=== PATIENT | male | born 1990 | race African-American/Black ===

== ENCOUNTER 2020-11-23 10:14 | Outpatient (CLI) | payer OTHER ==
--- NOTE | 2020-11-23 10:57 | SLEEP CARE CONSULTATION ---
Information from patient questionnaire entered by Viv Adair. I have reviewed and concur with the information entered by Viv Adair. This document represents the service I personally performed and the decisions made by me, Bonnie Garcia MD, [facility]. History of Present Illness Service Date and Time: 11/23/2020 1014 Reason for Visit: New patient Chief Complaint: reports: Insomnia, Snoring, Observed pauses in breathing, Other (restlessness) Date of Onset: 4 years Usual bedtime: 11 pm Time it takes to fall asleep: 1 hour Snores at night: Yes Observed to quit breathing while asleep: Yes Sleeps alone due to snoring: Yes (sometimes) Number of times waking at night: 2 Reasons for waking at night: reports: Choking, Snoring, Gasping for air Toss, Turn, or Twitch while sleeping: Yes Recalls having dreams: No Usually gets out of bed at: 5:45 - 7 am Feels refreshed in the morning: No Morning headache: No Sleepy or fatigued during the day: No Ever fallen asleep while driving: Yes Takes day naps: No Dreams during day naps: No Prior sleep studies: No Additional HPI information: I had the pleasure of seeing Mr. Awad today regarding the possibility of him having a sleep disorder. As you know, he is a 30 year old gentleman who complains of insomnia, snoring, observed apneas, and restless sleep. The patient tells me that he normally goes to bed around 11 pm, and it takes him approximately 60 minutes to fall asleep. He can recall waking up on the average of 2 times during the night. Occasionally, he wakes up because of his own snoring, choking, and having to gasp for air. In the morning he usually gets up out of the bed around 5:45 - 7 a.m. not feeling refreshed nor rested. He usually does not have a morning headache. During the day he does not feel sle epy and fatigued. His score on [place] Sleepiness Scale is 7 out of 24. He has fallen asleep while driving and has gone out of the talat. He usually does not take naps during the day. He reports having impaired concentration during the day. - Parasomnia Symptoms Ever been unable to move upon waking from sleep: No Ever felt weak in the knees when startled or emotional: No Bothered by creepy, crawly, restless sensations in legs: No Problems with memory or concentration: Yes Subjective Initial [place] Sleepiness Scale score: 7 (in 2020) Past Medical History Past Medical History: reports: Anxiety Social History The patient's occupation is a Active . Patient is Single and lives in [place]. Have you smoked in the past 12 months: No Alcohol use: Yes Alcohol amount and frequency: 3 drinks on weekends Caffeine use: No Family History Family history of sleep disordered breathing: Yes (father) Family Hx Sleep Apnea: Father: Sleep apnea - Untreated Allergies and Home Medications Drug allergies reviewed: Yes (NKDA) Home medication list reviewed: Yes (omeprazole as needed) Review of Systems Weight gain over past 5 years: 15 Weight loss over past 5 years: 5 Cardiovascular: denies: high blood pressure, palpitations, chest pain, irregular heart rate or pulse, leg or foot swelling, have to sleep sitting up, other Respiratory: denies: shortness of breath, wheeze, sputum production, chronic cough, other Gastrointestinal: reports: heartburn Urinary: denies: incontinence, frequency, urgency, impotence, other Neurological: denies: headaches, seizure, head trauma, disorientation, speech dysfunction, gait or balance problems, fainting or unconsciousness, other Psychiatric: reports: anxiety Ear/Nose/Throat: reports: wisdom teeth removed Endocrine: denies: thyroid disease, history of goiter, sluggishness, too hot or cold, excessive thirst, increased appetite, increased urination, unexplained weakness, other Musculoskeletal: denies: joint pain, neck pain, back pain, joint swelling, muscle pain or cramping, mobility problems, other Immunologic: denies: sneezing, rash, itching, allergies to food or environment, other Physical Exam Vital signs obtained and entered by: To minimize the risk of COVID-19 exposure, detailed exam was not performed. Height: 5 ft 9 in Weight: 208 lb Body Mass Index: 30.7 BMI Classification: Obese Impression and Plan IMPRESSION: 1. Obstructive Sleep Apnea-Hypopnea Syndrome, as suggested by history of loud and irregular snoring, observed cessation of breath while asleep, frequent awakenings during the night, and unrefreshed sleep. cognitive impairment, and daytime hypersomnolence. Narrow oropharynx and obesity are common predisposing factors for obstructive sleep apnea-hypopnea syndrome. I recommend proceeding to polysomnography to confirm the diagnosis and to assess severity. If he has significant sleep disordered breathing, a manual CPAP titration study will also be performed to find the optimal treatment pressure. I informed the patient of what the sleep studies involve and after some discussion, he agreed to proceed. 2. Insomnia, sleep onset. This is due to his later wakeup time on his days off. Because he gets up spontaneously around 7:30 am when not working, his bedtime is not until 11:30 pm at the earliest, assuming the normal sleep requirement of 8 hours a night. Therefore, going to bed relatively early at 11 pm causes insomnia. The solution is to wake up the same time on the weekends. Plan: 1. Schedule polysomnography + manual CPAP titration study and return in 1 to 2 weeks after the study to discuss result and initiate therapy. 2. Avoid long distance driving or when feeling sleepy. 3. Avoid alcohol, sedative and muscle relaxant around bedtime. 4. Attempt to lose some weight. Time Spent with Patient (minutes): 15
== END 2020-11-23 10:15 | disposition home or self-care (01) ==
LOC: SC 10:14
PROVIDERS: ATTEND Internal Medicine Pulmonary Disease
DX: R06.83 Snoring (principal); R06.81 Apnea, not elsewhere classified; G47.8 Other sleep disorders; R41.89 Other symptoms and signs involving cognitive functions and awareness; G47.10 Hypersomnia, unspecified; G47.00 Insomnia, unspecified; E66.9 Obesity, unspecified; Z68.30 Body mass index [BMI] 30.0-30.9, adult
CPT/HCPCS: 99202; 99212

== ENCOUNTER 2020-12-03 15:40 | Outpatient (CLI) | payer OTHER | END 2020-12-03 15:41 | disposition home or self-care (01) | LOC: SC 15:40 | PROVIDERS: ATTEND Internal Medicine Pulmonary Disease | DX: R06.83 Snoring (principal); G47.8 Other sleep disorders; G47.50 Parasomnia, unspecified; R06.81 Apnea, not elsewhere classified; E66.3 Overweight; Z68.30 Body mass index [BMI] 30.0-30.9, adult | CPT/HCPCS: 95806 ==

== ENCOUNTER 2020-12-15 10:22 | Outpatient (CLI) | payer OTHER ==
--- NOTE | 2020-12-15 11:04 | SLEEP CARE CONSULTATION ---
Information from patient questionnaire entered by Viv Adair. I have reviewed and concur with the information entered by Viv Adair. This document represents the service I personally performed and the decisions made by , Melania Drew ARNP. History of Present Illness Service Date and Time: 12/15/2020 1022 Initial [place] Sleepiness Scale score: 7 (in 2020) Current [place] Sleepiness Scale score: 17 Additional HPI information: CONNIE FERRARA returns for follow up and results of the recently performed home sleep study. The patient was informed of the following findings: no significant sleep disordered breathing with an average AHI of 2.7 and timmy oxygen saturation of 91%. His supine AHI was 3.3. I explained the pathophysiology behind obstructive sleep apnea. Patient does not have sleep apnea and was advised how weight gain could increase the risk of developing sleep apnea in the future. Patient has light snoring. Snoring can be reduced by weight loss. Weight loss is best achieved with diet consult. Patient instructed to contact PCP for referral. Snoring can also be treated with an oral appliance from a dentist. Advised to check insurance coverage. In addition, an ENT evaluation can be do to see if other treatment is indicated. Patient counseled not drink alcohol less than 4 hours before bedtime as it can increase snoring and apnea. Patient was cautioned about risks of drowsy driving until sleepiness symptoms resolve. Sleep Study - Results Type of Sleep Study: Home sleep study Prior sleep studies: No Polysomnography/Home Sleep Study results: Physician Impression: The quality of the study is good. The length of the study is adequate (> 240 minutes). Please also see the tabulated and graphic data. 1. No significant sleep-disordered breathing, with an AHI of 2.7/hr and timmy Sa O2 of 91%. During the study, the patient had 11 apneas (11 obstructive, 0 central, 0 mixed) and 5 hypopneas. The longest episode lasted 64.0 seconds. The few respiratory events occurred more frequently during supine sleep (supine AHI was 3.3 and non-supine, 1.27). Allergies and Home Medications Home medication list reviewed: Yes (no changes) Review of Systems Review of systems same as previous: Yes (no changes) Physical Exam Heart Rate: 80 O2 Saturation: 100 Height: 5 ft 9 in Weight: 204 lb 11.2 oz Body Mass Index: 30.2 BMI Classification: Obese Impression and Plan 1. Suspected Obstructive Sleep Apnea-Hypopnea Syndrome, as suggested by a history of snoring, observed cessation of breath while asleep, gasping or choking in sleep, unrefreshed sleep, and excessive daytime sleepiness. Patient HST showed an average AHI of 2.7 with a timmy oxygen saturation of 91%. His supine AHI was 3.3. Patient [place] today was 17/24 and he was concerned that he has been waking up gasping for air for many years. Patient advised that often weight loss will reduce snoring as well as apnea risk. An oral appliance can also be used for snoring. This would require a dental consultation. Patient cautioned not to use other online appliances as can cause bite issues. Patient is advised to check if insurance will cover. An ENT consult can also be helpful to determine if any other treatment is an option. Since he is somewhat borderline on his back for mild apnea and has compelling symptoms, we discussed options and patient would like to verify the results with an in lab study. I recommend proceeding to polysomnography to confirm the diagnosis and to assess severity. We obtained agreement to proceed. The pathophysiology of obstructive sleep apnea-hypopnea syndrome was discussed with the patient and health risks of cardiovascular and cerebrovascular disease if not treated. 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 Patient agreed to plan. * Schedule polysomnography +- manual CPAP titration study and return in 1-2 weeks after the study to discuss result and initiate therapy. * Avoid long distance driving or driving when feeling sleepy. * Avoid alcohol, sedative and muscle relaxant around bedtime. * Attempt to lose weight. * Review instructions provided by trained office staff on how to prepare for the sleep study. * Return for follow-up after sleep study completed. Counseling Topics: Weight loss health impact Visit Type: In Office Time Spent with Patient (minutes): 22 Provider Statement: I spent 100% of the Face to Face Visit with the patient with greater than 50% spent counseling the patient and coordination of care.
== END 2020-12-15 10:23 | disposition home or self-care (01) ==
LOC: SC 10:22
PROVIDERS: ATTEND Nurse Practitioner Family
DX: R06.83 Snoring (principal); R06.81 Apnea, not elsewhere classified; G47.8 Other sleep disorders; G47.10 Hypersomnia, unspecified; E66.9 Obesity, unspecified; Z68.30 Body mass index [BMI] 30.0-30.9, adult
CPT/HCPCS: 99212; 99213

== ENCOUNTER 2020-12-22 19:39 | Outpatient (CLI) | payer OTHER | END 2020-12-22 19:40 | disposition home or self-care (01) | LOC: SC 19:39 | PROVIDERS: ATTEND Nurse Practitioner Family | DX: R06.83 Snoring (principal); E66.3 Overweight; Z68.30 Body mass index [BMI] 30.0-30.9, adult | CPT/HCPCS: 95810 ==

== ENCOUNTER 2020-12-31 13:25 | Outpatient (CLI) | payer OTHER ==
--- NOTE | 2020-12-31 13:41 | SLEEP CARE CONSULTATION ---
Information from patient questionnaire entered by Aminah Gold. I have reviewed and concur with the information entered by Aminah Gold. This document represents the service I personally performed and the decisions made by , Melania Drew ARNP. History of Present Illness Service Date and Time: 12/31/2020 1325 Initial [place] Sleepiness Scale score: 7 (in 2020) Current [place] Sleepiness Scale score: 15 Additional HPI information: CONNIE FERRARA returns for follow up and results of the recently performed polysomnography. The patient was informed of the following findings: no significant sleep disordered breathing with an average AHI of 1.1 and timmy oxygen saturation of 91%. I explained the pathophysiology behind obstructive sleep apnea. Patient does not have sleep apnea and was advised how weight gain could increase the risk of developing sleep apnea in the future. I strongly encouraged the patient to lose weight. Patient has loud snoring. Snoring can be reduced by weight loss. Weight loss is best achieved with diet consult. Patient instructed to contact PCP for referral. Snoring can also be treated with an oral appliance from a dentist. Advised to check insurance coverage. In addition, an ENT evaluation can be do to see if other treatment is indicated. Patient counseled not drink alcohol less than 4 hours before bedtime as it can increase snoring and apnea. Patient was cautioned about risks of drowsy driving until sleepiness symptoms resolve. Sleep Study - Results Type of Sleep Study: Polysomnography Prior sleep studies: Yes Year and Where: 2020 [facility] Polysomnography/Home Sleep Study results: IMPRESSION: The quality of the study is good. The patient had normal sleep efficiency. The sleep architecture was No leg swelling. Respiratory monitoring showed no significant sleep d isordered breathing (AHI = 1.1) or hypoxia (timmy oxygen saturation of 91%). The rare respiratory events occurred mainly during supine REM sleep (supine AHI = 2.0; non-supine = 0.48). Snore was loud in intensity. There was no significant periodic leg movement of sleep. Cardiac rhythm was normal sinus rhythm without significant arrhythmia. No abnormal behavior (parasomnia) observed during the night. Allergies and Home Medications Home medication list reviewed: Yes (no changes) Review of Systems Review of systems same as previous: Yes (no changes) Physical Exam Heart Rate: 81 O2 Saturation: 97 Height: 5 ft 9 in Weight: 214 lb Body Mass Index: 31.6 BMI Classification: Obese Impression and Plan Snoring but no significant sleep disordered breathing. Patient advised that often weight loss will reduce snoring as well as apnea risk. An oral appliance can also be used for snoring. This would require a dental consultation. Patient cautioned not to use other online appliances as can cause bite issues. A list of accredited dentists in [facility] and one local dentist who makes oral appliances is available in our office. Patient is advised to check if insurance will cover. An ENT consult can also be helpful to determine if any other treatment is an option. * Attempt to lose weight * Avoid alcohol consumption near bedtime * The patient is cautioned about driving until sleepiness is completely resolved. * Return as needed. Counseling Topics: Weight loss health impact Visit Type: In Office Time Spent with Patient (minutes): 13 Provider Statement: I spent 100% of the Face to Face Visit with the patient with greater than 50% spent counseling the patient and coordination of care.
== END 2020-12-31 13:26 | disposition home or self-care (01) ==
LOC: SC 13:25
PROVIDERS: ATTEND Nurse Practitioner Family
DX: R06.83 Snoring (principal); E66.9 Obesity, unspecified; Z68.31 Body mass index [BMI] 31.0-31.9, adult
CPT/HCPCS: 99212

== ENCOUNTER 2021-07-28 11:05 | Outpatient (CLI) | payer OTHER | END 2021-07-28 11:06 | disposition short-term general hospital (02) | LOC: EMS 11:05 | DX: Z04.1 Encounter for examination and observation following transport accident (principal); R41.0 Disorientation, unspecified; M79.662 Pain in left lower leg; M54.5 Low back pain; M25.552 Pain in left hip; M25.551 Pain in right hip | CPT/HCPCS: A0425; A0429 ==

== ENCOUNTER 2022-03-10 09:53 | Outpatient (CLI) | payer OTHER ==
--- NOTE | 2022-03-10 16:46 | MRI Report ---
PROCEDURE: Brain W/O INDICATIONS: HEAD INJURY TECHNIQUE: Noncontrast axial T1 spin echo, axial T2 fast spin echo, sagittal and axial FLAIR, coronal T2 fast sp in echo, axial gradient echo, axial diffusion and ADC through the brain. COMPARISON: None. FINDINGS: Image quality: Excellent. CSF Spaces: Basal cisterns are patent. No extra-axial fluid collections. Ventricles are normal in size and shape. Brain: No intracranial masses or hemorrhage. [place]/white matter interface is normal. Brainstem appe ars normal. Diffusion-weighted images demonstrate no acute ischemic insult. No chronic ischemic ins ults. Normal intravascular flow voids are present. Skull and face: Calvarium has normal marrow signal. Orbits appear normal. Sinuses: Sinuses and mastoids are clear. IMPRESSION: 1. No intracranial disease process. 2. No abnormal intracranial mass or mass effect. 3. No intracranial hemorrhage. Reviewed by: Lauren Hutchinson MD, PhD on 03/10/2022 4:45 PM PDT Approved by: Lauren Hutchinson MD, PhD on 03/10/2022 4:45 PM PDT Station ID: [id number]
== END 2022-03-10 09:54 | disposition home or self-care (01) ==
LOC: DI 09:53
PROVIDERS: ATTEND Physician Assistant
DX: S09.90XA Unspecified injury of head, initial encounter (principal)